=== PATIENT | male | born 1975 | race Caucasian/White ===

== ENCOUNTER 2018-06-13 15:47 | Outpatient (CLI) | payer BC | END 2018-06-13 23:59 | disposition home or self-care (01) | LOC: LAB 15:47 | PROVIDERS: ATTEND Family Medicine | DX: M35.9 Systemic involvement of connective tissue, unspecified (principal) | CPT/HCPCS: 36415; 86140 ==

== ENCOUNTER 2020-10-09 20:00 | Emergency (ER) | payer BC ==
[~2020-10-09] VITALS: Ht 177.8 cm; Wt 81.8 kg
--- NOTE | 2020-10-09 21:01 | NUR ---
VASCULAR ULTRASOUND AT BEDSIDE
[2020-10-09 21:33] VITALS: BP 148/104
== END 2020-10-09 21:56 | disposition home or self-care (01) ==
LOC: ER 20:01
DX: I82.812 Embolism and thrombosis of superficial veins of left lower extremity (principal)
CPT/HCPCS: 93971; 99284

== ENCOUNTER 2020-11-12 19:46 | Emergency (ER) | payer BC ==
[~2020-11-12] VITALS: Ht 177.8 cm; Wt 76.0 kg
[2020-11-12 21:22] VITALS: BP 139/85
== END 2020-11-12 22:54 | disposition home or self-care (01) ==
LOC: ER 19:47
DX: R59.0 Localized enlarged lymph nodes (principal); T50.B95A Adverse effect of other viral vaccines, initial encounter; Y92.89 Other specified places as the place of occurrence of the external cause
CPT/HCPCS: 93005; 99283